=== PATIENT | male | born 2000 | race Caucasian/White ===

== ENCOUNTER 2021-04-28 11:39 | Emergency (ER) | payer OTHER, SELFPAY ==
[2021-04-28 11:44] VITALS: PULSE 83; RESP 18; O2SAT 99; BMI 20.9
--- NOTE | 2021-04-28 11:49 | XR_ITS ---
PROCEDURE: XR FOOT LT MIN 3V CLINICAL INDICATION: DROPPED POST ON FOOT COMPARISON: No exams were available for comparison FINDINGS: No fracture or dislocation. No lytic or blastic change. There is normal mineralization. The joint spaces are well-preserved. No significant degenerative/arthritic changes. No erosive changes evident. Other findings:Sclerotic foci noted in the cuboid and calcaneus consistent with bone islands IMPRESSION: No acute findings. Dictated by: Forrest Shah MD 04/28/2021 12:29 Forrest Shah MD in [place] 04/28/2021 12:29
--- NOTE | 2021-04-28 13:36 | HMH.EDUTC ---
[facility] [place]: Foot contusion Qualifiers: Encounter type: initial encounter Laterality: left Qualified Code(s): S90.32XA - Contusion of left foot, initial encounter Disposition: Home, Self-Care Condition on Discharge: Good Instructions: How To Perform RICE (Rest, Ice, Compress, Elevate), DI for Foot Pain Additional Instructions: *weight bearing as tolerated *RICE, Rest the extremity, Ice 15-20 minutes 3-4 times daily, Compress- wear the alfa wrap as discussed as much as possible to help reduce swelling and pain, Elevate the extremity when at rest *Alfa wrap is for support and help control swelling, use it except in the shower. Be sure that is not to tight but not to loose either *Elevate when resting *Ibuprofen every 6-8 hours as needed for pain an inflammation. If need something more can take Tylenol in between doses of Ibuprofen to help Immediately follow up with your family doctor for new or worsening of symptoms, or no noticeable improvement over the next 3-5 days Referrals: Judah Mcclain [Primary Care Provider] - As needed Time of Disposition: 13:45 Medical Decision Making - Jim Inquiry Pt receiving controlled substance: No Jim was queried for this patient: No Vital Signs: 04/28/21 11:44 Pulse Rate [Left Radial] 83 Respiratory Rate 18 02 Sat by Pulse Oximetry 99 Oxygen Delivery Method Room Air - Radiology Data #1 Image(s): Foot/Toes Image Reviewed: Yes I have reviewed radiologist's interpretation IMPRESSION: No acute findings. [facility] [place] - General Stated complaint: AO 1207, left foot pain Time Seen by Provider: 04/28/21 13:37 Mode of Arrival: Ambulatory Source of Information: Patient Limitations: No Limitations Description of Symptoms (Recalled from Triage Doc. by RN): c/o left foot pain after a fence post fell on it this morning - History of Present Illness Provider Complaint: Patient state that he was working in the yard this morning when the fence post fell and landed on his left foot States that he has been having bruising and pain at times when he walks so he came in to get it checked - Related Data Allergies Allergy/AdvReac Type Severity Reaction Status Date / Time From BIAXIN Allergy Unknown I-HIVES Uncoded 05/10/17 15:10 From CEFZIL Allergy Unknown I-HIVES Uncoded 05/10/17 15:10 [facility] History - Hepatitis A Screen Attestation statement:: This patient has been screened for Hepatitis A risk factors. I have reviewed the patient's past medical history: Yes ROS Obtained: Yes All systems reviewed & no additional complaints, Yes Systems reviewed as appropriate & no additional complaints - Constitutional Constitutional: Reports system reviewed and no additional complaints, except as docu, Denies body ache, Denies chills, Denies fever(s) - ENT Ears, Nose, Mouth, and Throat: Reports system reviewed and no additional complaints, except as docu - Cardiovascular Cardiovascular: Reports system reviewed and no additional complaints, except as docu Physical Exam - General General appearance: alert, in no apparent distress - Respiratory Respiratory exam: Present: normal lung sounds bilaterally. Absent: respiratory distress - Cardiovascular Cardiovascular exam: Present: regular rate, normal rhythm. Absent: JVD - Abdominal Exam Abdominal exam: Present: soft, normal bowel sounds. Absent: distention, tenderness, guarding - Expanded Lower Extremity Exam Left Foot/toe exam: Present: tenderness. Absent: swelling, abrasion, ecchymosis, deformity, erythema Neurovascular/Tendon exam: Present: normal capillary refill. Absent: pulse deficit, motor deficit, sensory deficit, extremity cold to touch, pallor Gait: observed and normal - Neurological Exam Neurological exam: Present: alert, oriented X3
[2021-04-28 13:52] VITALS: BP 127/85; PULSE 83; RESP 18; TEMP 36.7
[2021-04-28 13:53] VITALS: PULSE 83; RESP 18; TEMP 36.7; O2SAT 99; BMI 20.9
== END 2021-04-28 13:57 | disposition home or self-care (01) ==
PROVIDERS: Emergency Provider Nurse Practitioner; PCP Pediatrics
DX: S90.32XA Contusion of left foot, initial encounter (principal); W22.8XXA Striking against or struck by other objects, initial encounter; Y92.89 Other specified places as the place of occurrence of the external cause
CPT/HCPCS: 73630; 99202; G0463